=== PATIENT | female | born 1990 | race Caucasian/White ===

== ENCOUNTER 2017-08-04 23:05 | Emergency (ER) | payer SELFPAY ==
--- NOTE | 2017-08-04 23:23 | ED.PDOC ---
History of Present Illness - General Chief Complaint: Respiratory Problem Stated Complaint: cough, congestion Time Seen by Provider: 08/04/17 23:20 Source: patient Exam Limitations: no limitations - History of Present Illness Comments: Argelia Knight 27 y/o female stated that 3 days ago had nasal drainage and nasal congestion then yesterday with non productive cough/scratchy throat.Had taken claritin-d not better. Timing/Duration: other - see hpi Cough Quality/Degree: dry cough Possible Cause: occasional episodes Improving Factors: nothing Worsening Factors: nothing Associated Symptoms: nasal congestion, nasal drainage, other - see hpi Respiratory Risk Factors: exposure to allergen Allergies/Adverse Reactions: Allergies Amoxicillin [From Augmentin] Allergy (Verified 08/04/17 23:17) Clavulanic Acid [From Augmentin] Allergy (Verified 08/04/17 23:17) Home Medications: Ambulatory Orders Azithromycin [Zithromax Z-Lion] 1 ea PO DAILY #1 pack 08/05/17 Review of Systems - Review of Systems Constitutional: States: no symptoms reported EENTM: States: see HPI Respiratory: States: cough Cardiology: States: no symptoms reported All other Systems: Reviewed and Negative, No Change from Baseline Past Medical History (General) - Patient Medical History Hx Asthma: No Hx Thyroid Disease: No Hx Diabetes: No Surgical History: no surgical history - Vaccination History Hx Influenza Vaccination: Yes - Social History Hx Physical Abuse: No Hx Emotional Abuse: No - Female History Patient is a Female of Child Bearing Age (10 -59 yrs old): Yes Hx Last Menstrual Period: 07/09/17 Patient : No Family Medical History - Family History Father Family History: Unknown Physical Exam - Physical Exam General Appearance: Alert, Comfortable Eye Exam: bilateral normal ENT Exam: normal ENT inspection, hearing grossly normal, TMs normal, pharynx normal, nasal congestion Neck: full range of motion, supple Respiratory: lungs clear, normal breath sounds, no respiratory distress Cardiovascular/Chest: normal peripheral pulses, regular rate, rhythm, no murmur Gastrointestinal/Abdominal: soft, no organomegaly Extremity: no pedal edema, no calf tenderness Neurologic: alert Skin Exam: normal color, warm/dry Progress - Progress Progress: 08/05/17 00:23 08/04/17 23:26 Oxymetazoline Nasal [place] [Afrin Nasal [place]] 2 spray BNAS BID PRN 08/05/17 00:23 Vital Signs - 8 hr 08/04/17 23:15 Temperature 98.8 F Pulse Rate [ 91 H Right] Respiratory 20 Rate Blood Pressure 136/84 [Left Arm] O2 Sat by Pulse 94 L Oximetry - EKG/XRAY/CT XRAY: chest - no acute abnormalities Departure - Departure Clinical Impression: Upper respiratory infection, acute Time of Disposition: 00:25 Disposition: Discharge to Home or Self Care Condition: Good Departure Forms: ED Discharge - Pt. Copy, Patient Portal Self Enrollment Prescriptions: Azithromycin [Zithromax Z-Lion] 1 ea PO DAILY #1 pack Home Medications: Ambulatory Orders Azithromycin [Zithromax Z-Lion] 1 ea PO DAILY #1 pack 08/05/17 Additional Instructions: Continue with AFRIN nose spray 2 sprays each nose AM/PM 3 days on 3 days off;( over the counter medications) Benadryl 25 mg capsule-2 caps at bedtime;Mucinex DM one tablet am/pm for cough may continue Claritin D as directed for nasal congestion
[2017-08-04] MEDS ORDERED: OXYMETAZOLINE NASAL SPRAY 15 ML BTTL BNAS PRN (23:26)
[2017-08-04] MEDS ORDERED: diphenhydrAMINE HCL 25 MG CAP PO ONE (23:26)
[2017-08-04] MEDS ORDERED: BENZONATATE PERLES 100 MG CAP PO ONE (23:26)
[2017-08-04] MEDS ORDERED: AZITHROMYCIN 250 MG TAB PO ONE (23:27)
--- NOTE | 2017-08-05 00:06 | RAD ---
EXAM: Single view chest. INDICATION: Cough. COMPARISON: Chest x-ray: None. FINDINGS: Cardiac silhouette: Unremarkable. Sammi: Unremarkable. Lobar consolidation: None. Pleural effusion: None. Pneumothorax: None. Other: None. Bones: Unremarkable. Other: None. IMPRESSION: 1. No acute cardiopulmonary process. Electronically signed by: Antoine Gilman MD 08/05/2017 12:05 AM CDT Workstation: [id number]
[2017-08-05 00:37] VITALS: BP 132/82; TEMP 98.1; O2SAT 95
== END 2017-08-05 00:37 | disposition home or self-care (01) ==
LOC: ER 23:05
DX: J06.9 Acute upper respiratory infection, unspecified (principal)
CPT/HCPCS: 71045; Q0144; Q0163

== ENCOUNTER 2018-04-10 23:49 | Emergency (ER) | payer OTHER ==
[2018-04-11 00:05] VITALS: BP 118/79; TEMP 97.5; O2SAT 98
[2018-04-11] MEDS ORDERED: levoFLOXacin 500 MG TAB PO ONE (00:09)
[2018-04-11] MEDS ORDERED: predniSONE 20 MG TAB PO ONE (00:09)
[2018-04-11] MEDS ORDERED: traMADol HCL 50 MG TAB PO ONE (00:09)
--- NOTE | 2018-04-11 00:12 | ED.PDOC ---
History of Present Illness - General Chief Complaint: ENT Problem Stated Complaint: rt ear pain, migraine Time Seen by Provider: 04/10/18 23:58 Source: patient Exam Limitations: no limitations - History of Present Illness Initial Comments: the patient is a 27-year-old female presenting to emergency room secondary to pain in and around her right ear present for the last 24-48 hours. The pain is giving pain radiating up her scalp. She has pain anterior and posterior to the ear. There is no displacement of the ear or erythema. She does have some mild lymphadenopathy on that side. There does not appear to be any infection in the ear canal itself or behind the eardrum though she does have increased pressure behind the eardrum. No definite fever. She has had a mild runny nose. Timing/Duration: other - 2 days Severity: moderate Improving Factors: nothing Worsening Factors: nothing Associated Symptoms: headaches Allergies/Adverse Reactions: Allergies Amoxicillin [From Augmentin] Allergy (Verified 08/04/17 23:17) Clavulanic Acid [From Augmentin] Allergy (Verified 08/04/17 23:17) Home Medications: Ambulatory Orders Azithromycin [Zithromax Z-Lion] 1 ea PO DAILY #1 pack 08/05/17 levoFLOXacin [Levaquin] 500 mg PO DAILY #7 tab 04/11/18 Review of Systems - Review of Systems Constitutional: States: malaise EENTM: States: ear pain - right, nose congestion Respiratory: States: no symptoms reported Cardiology: States: no symptoms reported Gastrointestinal/Abdominal: States: no symptoms reported Genitourinary: States: no symptoms reported Musculoskeletal: States: no symptoms reported Skin: States: no symptoms reported Neurological: States: no symptoms reported Endocrine: States: no symptoms reported All other Systems: No Change from Baseline Past Medical History (General) - Patient Medical History Hx Asthma: No Hx Thyroid Disease: No Hx Diabetes: No Hx Gastroesophageal Reflux: No Surgical History: other - Vaccination History Hx Tetanus, Diphtheria Vaccination: Yes Hx Influenza Vaccination: Yes - Social History Hx Tobacco Use: No Hx Alcohol Use: Yes - rarely Hx Physical Abuse: No Hx Emotional Abuse: No - Female History Patient is a Female of Child Bearing Age (10 -59 yrs old): Yes Hx Last Menstrual Period: 07/09/17 Patient : No Family Medical History - Family History Father Family History: Unknown Physical Exam - Physical Exam General Appearance: Alert, Comfortable, No apparent distress Eye Exam: bilateral normal Ears, Nose, Throat: hearing grossly normal, normal pharynx, other - see history of present illness Neck: full range of motion, lymphadenopathy (R) - mild Respiratory: no respiratory distress, no accessory muscle use Cardiovascular/Chest: no edema Gastrointestinal/Abdominal: other - obese Rectal Exam: deferred Extremity: normal range of motion, normal inspection, no pedal edema 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 She does have mild increased lymphadenopathy in the area. There is no overt ear canal or inner ear infection on exam. She does have mild tenderness to palpation over the right mastoid but she also has mild tenderness to palpation over the right temporomandibular joint, scalp and anterior cervical chain. I am therefore uncertain of the exact source. I'm going to place the patient on Levaquin for 7 days. She did receive a dose of oral prednisone here. Motrin should be taken with food and will likely help reduce her discomfort as well for the next few days. She needs to keep herself well hydrated. Follow up with primary care doctor early next week. Departure - Departure Clinical Impression: Ear pain, right Disposition: Discharge to Home or Self Care Condition: Good Departure Forms: ED Discharge - Pt. Copy, Patient Portal Self Enrollment Diet: bland diet Activity: increase activity as tolerated Prescriptions: levoFLOXacin [Levaquin] 500 mg PO DAILY #7 tab Home Medications: Ambulatory Orders Azithromycin [Zithromax Z-Lion] 1 ea PO DAILY #1 pack 08/05/17 levoFLOXacin [Levaquin] 500 mg PO DAILY #7 tab 04/11/18 Additional Instructions: the patient is a 27-year-old female presenting secondary to pain surrounding the right ear. She does have mild increased lymphadenopathy in the area. There is no overt ear canal or inner ear infection on exam. She does have mild tenderness to palpation over the right mastoid but she also has mild tenderness to palpation over the right temporomandibular joint, scalp and anterior cervical chain. I am therefore uncertain of the exact source. I'm going to place the patient on Levaquin for 7 days. She did receive a dose of oral prednisone here. Motrin should be taken with food and will likely help reduce her discomfort as well for the next few days. She needs to keep herself well hydrated. Follow up with primary care doctor early next week.
== END 2018-04-11 00:26 | disposition home or self-care (01) ==
LOC: ER 23:49
DX: H92.01 Otalgia, right ear (principal); R51 Headache; Z88.1 Allergy status to other antibiotic agents

== ENCOUNTER 2019-06-12 13:52 | Emergency (ER) | payer BC, OTHER ==
--- NOTE | 2019-06-12 14:05 | ED.PDOC ---
History of Present Illness - General Chief Complaint: Abdominal Pain Time Seen by Provider: 06/12/19 14:04 Information Source: patient Exam Limitations: no limitations - History of Present Illness Initial Comments: 28 yo F who presents for RLQ abd pain, onset one week ago, constant, worsening since, worse with movement or change in position, no radiation. Denies strenuous activity, trauma. No hx of hernia. Recent visit at [facility] ED for sx, workup including labs, CT, pelvic US performed. Told she had an ovarian cyst and to follow up with PARKING MANAGER. She did so today, states her PARKING MANAGER looked through all th e results and did not think this was related to her cyst and sent her to the ED for appendicitis rule out. Pt is on menstrual cycle. No hx of kidney stones. Denies f/c, cough, congestion, CP, SOB, n/v/d, edema, urinary sx, vag sx. Review of Systems - Review of Systems Constitutional: Denies: chills, fever EENTM: Denies: nose congestion, throat pain Respiratory: Denies: cough, short of breath Cardiology: Denies: chest pain, edema, palpitations, syncope Gastrointestinal/Abdominal: States: abdominal pain. Denies: constipation, diarrhea, nausea, vomiting Genitourinary: States: other - Vagingal bleeding, on menstrual cycle. Denies vag discharge, odor, itching.. Denies: dysuria, frequency, hematuria Musculoskeletal: Denies: back pain, muscle pain, neck pain Skin: Denies: lesions, rash Neurological: Denies: headache, numbness, weakness Past Medical History (General) - Patient Medical History Hx Asthma: No Hx Thyroid Disease: No Hx Diabetes: No Hx Gastroesophageal Reflux: No - Vaccination History Hx Tetanus, Diphtheria Vaccination: Yes Hx Influenza Vaccination: Yes - Social History Hx Tobacco Use: No Hx Alcohol Use: Yes - rarely Hx Physical Abuse: No Hx Emotional Abuse: No - Female History Hx Last Menstrual Period: 07/09/17 Patient : No Family Medical History - Family History Father Family History: Unknown Physical Exam - Physical Exam General Appearance: Alert, Comfortable, No apparent distress, Well Developed, Well Nourished Eyes, Ears, Nose, Throat Exam: normal ENT inspection Neck: full range of motion, supple Respiratory: chest non-tender, lungs clear, normal breath sounds, no respiratory distress, no accessory muscle use Cardiovascular/Chest: normal peripheral pulses, regular rate, rhythm, no edema, no gallop, no JVD, no murmur Peripheral Pulses: No deficit Gastrointestinal/Abdominal: normal bowel sounds, non tender, soft, other - No guarding rebound, distention. Mild R lower TTP that is distractable. No hernias. Back Exam: normal inspection, no CVA tenderness, no vertebral tenderness Extremity: normal range of motion, non-tender, normal inspection, no pedal edema Neurologic: no motor/sensory deficits, alert, normal mood/affect, oriented x 3 Skin Exam: normal color, warm/dry Lymphatic: no adenopathy Progress - Progress Progress: 06/12/19 15:58 I have explained and reviewed all results with the pt. Pt is comfortable with d/c home, pain improved. I explained that emergent conditions may arise and to return to the ER for new, worsening, or any persistent conditions. I've explained the importance of f/u for recheck. All questions and concerns addressed at this time. Pt understands and agrees with plan. Pt well appearing, NAD, is stable for discharge. Latasha Forbes MD Emergency Medicine Physician Billing Number [id number] - Results/Orders Results/Orders: 06/12/19 14:29 Hold Metformin x 48Hrs [id number] 06/12/19 23:55 NPO at Midnight ONCE 06/12/19 Breakfast NPO Diet [NPO Except Meds] Laboratory Results - last 24 hr 06/12/19 06/12/19 06/12/19 14:24 14:24 14:24 WBC 9.3 RBC 4.40 Hgb 12.1 Hct 37.0 MCV 84.2 MCH 27.6 MCHC 32.7 L RDW 16.3 H Plt Count 158 MPV 8.1 Absolute Neuts (auto) 6.50 Absolute Lymphs (auto) 2.10 Absolute Monos (auto) 0.50 Absolute Eos (auto) 0.10 Absolute Basos (auto) 0.00 Neutrophils % 70.5 Lymphocytes % 22.6 Monocytes % 4.9 Eosinophils % 1.5 Basophils % 0.5 Sodium 138 Potassium 3.5 L Chloride 104 Carbon Dioxide 27 Anion Gap 10.5 L BUN 10 Creatinine 0.81 BUN/Creatinine Ratio 12.3 Random Glucose 98 Serum Osmolality 274.7 L Calcium 9.8 Total Bilirubin 0.9 AST 20 ALT 24 Alkaline Phosphatase 64 Serum Total Protein 7.5 Albumin 4.5 Globulin 3.0 Albumin/Globulin Ratio 1.5 Urine Color Urine Appearance Urine pH Ur Specific Lawrence Urine Protein Urine Glucose (UA) Urine Ketones Urine Blood Urine Nitrite Urine Bilirubin Urine Urobilinogen Ur Leukocyte Esterase Urine RBC Urine WBC Ur Epithelial Cells Urine Bacteria Urine HCG, Qual Negative 06/12/19 14:24 WBC RBC Hgb Hct MCV MCH MCHC RDW Plt Count MPV Absolute Neuts (auto) Absolute Lymphs (auto) Absolute Monos (auto) Absolute Eos (auto) Absolute Basos (auto) Neutrophils % Lymphocytes % Monocytes % Eosinophils % Basophils % Sodium Potassium Chloride Carbon Dioxide Anion Gap BUN Creatinine BUN/Creatinine Ratio Random Glucose Serum Osmolality Calcium Total Bilirubin AST ALT Alkaline Phosphatase Serum Total Protein Albumin Globulin Albumin/Globulin Ratio Urine Color Yellow Urine Appearance Clear Urine pH 7.0 Ur Specific [place] 1.020 Urine Protein Negative Urine Glucose (UA) Negative Urine Ketones Negative Urine Blood Moderate H Urine Nitrite Negative Urine Bilirubin Negative Urine Urobilinogen 0.2 Ur Leukocyte Esterase Negative Urine RBC 5-10 H Urine WBC 0 Ur Epithelial Cells 3-5 Urine Bacteria 0 Urine HCG, Qual CT abd/pelvis: EXAM DESCRIPTION: Abdomen/Pelvis w/Contrast CLINICAL HISTORY: abd pain, RLQ COMPARISON: None. TECHNIQUE: Postcontrast CT images of the abdomen and pelvis are obtained using standard imaging protocol. This exam was performed according to our departmental dose-optimization program, which includes automated exposure control, adjustment of the mA and/or kV according to patient size and/or use of iterative reconstruction technique . FINDINGS: Visualized lung bases are unremarkable. Liver is unremarkable. Borderline splenomegaly. The spleen measures 13.6 cm. The pancreas, adrenal glands, and contracted gallbladder are unremarkable. Abdominal vasculature are unremarkable. No nephrolithiasis or ureteral obstruction. Urinary bladder unremarkable. Uterus and ovaries normal. The appendix is retrocecal and normal. Mild distention of the stomach. No small bowel obstruction or bowel wall thickening. Mild scattered diverticuli of the colon without associated inflammatory changes or fluid collections are seen. No pathologically enlarged abdominal or retroperitoneal lymphadenopathy. Osseous structures show no aggressive bony lesions. IMPRESSION: No acute findings on CT of the abdomen and pelvis. Mild splenomegaly. Gallbladder is contracted. Mild colon diverticulosis without CT evidence of diverticulitis. Electronically signed by: Sreekanth Degroot MD 06/12/2019 3:49 PM CELL TESTER Vital Signs - 24 hr 06/12/19 06/12/19 13:59 14:00 Temperature 97.8 F Pulse Rate [ 77 77 Pulse ox] Respiratory 16 16 Rate Blood Pressure 117/86 [L brachial] O2 Sat by Pulse 100 Oximetry Departure - Departure Clinical Impression: Acute abdominal pain Time of Disposition: 15:57 Disposition: Discharge to Home or Self Care Health Concerns: Condition: stable Departure Forms: ED Discharge - Pt. Copy, Patient Portal Self Enrollment Instructions: DI for Abdominal Pain-Adult Home Medications: Ambulatory Orders Azithromycin [Zithromax Z-Lion] 1 ea PO DAILY #1 pack 08/05/17 levoFLOXacin [Levaquin] 500 mg PO DAILY #7 tab 04/11/18 Additional Instructions: Follow up: [facility] As needed, if symptoms worsen Your Primary Care Physician, Make appointment, 3 days, for follow up
[2019-06-12] MEDS ORDERED: KETOROLAC TROMETHAMINE INJ 30 MG/ML VIAL IV ONE (14:30)
[2019-06-12 14:41] VITALS: BP 117/86
--- NOTE | 2019-06-12 15:51 | CT ---
EXAM DESCRIPTION: Abdomen/Pelvis w/Contrast CLINICAL HISTORY: abd pain, RLQ COMPARISON: None. TECHNIQUE: Postcontrast CT images of the abdomen and pelvis are obtained using standard imaging protocol. This exam was performed according to our departmental dose-optimization program, which includes automated exposure control, adjustment of the mA and/or kV according to patient size and/or use of iterative reconstruction technique . FINDINGS: Visualized lung bases are unremarkable. Liver is unremarkable. Borderline splenomegaly. The spleen measures 13.6 cm. The pancreas, adrenal glands, and contracted gallbladder are unremarkable. Abdominal vasculature are unremarkable. No nephrolithiasis or ureteral obstruction. Urinary bladder unremarkable. Uterus and ovaries normal. The appendix is retrocecal and normal. Mild distention of the stomach. No small bowel obstruction or bowel wall thickening. Mild scattered diverticuli of the colon without associated inflammatory changes or fluid collections are seen. No pathologically enlarged abdominal or retroperitoneal lymphadenopathy. Osseous structures show no aggressive bony lesions. IMPRESSION: No acute findings on CT of the abdomen and pelvis. Mild splenomegaly. Gallbladder is contracted. Mild colon diverticulosis without CT evidence of diverticulitis. Electronically signed by: Sreekanth Degroot MD 06/12/2019 3:49 PM HOT BOX OPERATOR
[2019-06-12 17:37] VITALS: O2SAT 99
[2019-06-12 17:41] VITALS: TEMP 98
== END 2019-06-12 16:20 | disposition home or self-care (01) ==
LOC: ER 13:52
DX: R10.31 Right lower quadrant pain (principal); Z87.42 Personal history of other diseases of the female genital tract